=== PATIENT | male | born 1960 | race Caucasian/White ===

== ENCOUNTER 2019-07-22 10:16 | Outpatient (CLI) | payer MEDICARE, OTHER ==
--- NOTE | 2019-07-22 11:48 | RAD ---
Esophagram air contrast HISTORY: Reflux. Dysphagia. FINDINGS: Air contrast and single column barium evaluation of the esophagus shows a small sliding hia linsey hernia. Extensive reflux of contrast throughout the length of the esophagus. Mild nonpropulsive, tertiary type contractions. A 12 mm barium tablet traversed the esophagus without holdup. IMPRESSION : Small sliding hiatal hernia with large amount of gastroesophageal reflux and mild tertiary contractio ns of the esophagus. No evidence of esophageal obstruction.
== END 2019-07-22 10:17 | disposition home or self-care (01) ==
LOC: RAD 10:16
PROVIDERS: ATTEND Internal Medicine Gastroenterology
DX: K21.9 Gastro-esophageal reflux disease without esophagitis (principal); R13.19 Other dysphagia; Z11.59 Encounter for screening for other viral diseases; K44.9 Diaphragmatic hernia without obstruction or gangrene; K22.8 Other specified diseases of esophagus
CPT/HCPCS: 74220

== ENCOUNTER 2022-12-27 09:03 | Outpatient (CLI) | payer MEDICARE | END 2022-12-27 09:04 | disposition home or self-care (01) | LOC: RAD 09:03 | PROVIDERS: ATTEND Internal Medicine Critical Care Medicine | DX: R06.00 Dyspnea, unspecified (principal) | CPT/HCPCS: 71046 ==

== ENCOUNTER 2023-01-29 08:43 | Outpatient (CLI) | payer MEDICARE | END 2023-01-29 08:44 | disposition home or self-care (01) | LOC: BICCT 08:43 | PROVIDERS: ATTEND Internal Medicine Critical Care Medicine | DX: R91.8 Other nonspecific abnormal finding of lung field (principal); J98.4 Other disorders of lung; I70.0 Atherosclerosis of aorta; I25.10 Atherosclerotic heart disease of native coronary artery without angina pectoris | CPT/HCPCS: 71250 ==

== ENCOUNTER 2023-07-16 07:49 | Day surgery (SDC) | payer MEDICARE ==
[2023-07-15 15:19] VITALS: BMI 35.2
[2023-07-16] MEDS ORDERED: CEFAZOLIN 2 GM VIAL ONE (11:58)
[2023-07-16] MEDS ORDERED: Sodium Chloride 0.9% 100 ML ONE (11:58)
[2023-07-16] MEDS ORDERED: fentaNYL PF 100 MCG/2 ML SYRINGE ONE (11:59)
[2023-07-16] MEDS ORDERED: PROPOFOL 20 ML ONE (11:59)
[2023-07-16] MEDS ORDERED: Lidocaine 1% PF 5 ML VIAL ONE (12:10)
[2023-07-16] MEDS ORDERED: HYDROcodone/Acetaminophen 5/325 mg Tablet ONE (14:28)
== END 2023-07-16 14:40 | disposition home or self-care (01) ==
LOC: SDC 07:49
PROVIDERS: ATTEND Thoracic Surgery (Cardiothoracic Vascular Surgery)
PROC: 0JH63WZ Insertion of Totally Implantable Vascular Access Device into Chest Subcutaneous Tissue and Fascia, Percutaneous Approach (ICD-10-PCS; principal; 2023-07-16)
DX: C34.11 Malignant neoplasm of upper lobe, right bronchus or lung (principal); R91.1 Solitary pulmonary nodule; I25.10 Atherosclerotic heart disease of native coronary artery without angina pectoris; I10 Essential (primary) hypertension; E78.5 Hyperlipidemia, unspecified; K21.9 Gastro-esophageal reflux disease without esophagitis; E11.9 Type 2 diabetes mellitus without complications; F32.A Depression, unspecified; Z79.84 Long term (current) use of oral hypoglycemic drugs; Z96.641 Presence of right artificial hip joint; F17.210 Nicotine dependence, cigarettes, uncomplicated; Z88.5 Allergy status to narcotic agent; Z98.890 Other specified postprocedural states; Z79.899 Other long term (current) drug therapy
CPT/HCPCS: 36561; 71045; J1642; J2704; J3490; C1788

== ENCOUNTER 2023-08-01 10:18 | Outpatient (CLI) | payer MEDICARE | END 2023-08-01 10:19 | disposition home or self-care (01) | LOC: MRI 10:18 | PROVIDERS: ATTEND Internal Medicine Hematology & Oncology | DX: C34.11 Malignant neoplasm of upper lobe, right bronchus or lung (principal) | CPT/HCPCS: 70553 ==

== ENCOUNTER 2023-12-12 13:15 | Outpatient (CLI) | payer MEDICARE ==
[2023-12-12] MEDS ORDERED: Iopamidol 370 76% 100 ML VIAL ONE (13:42)
== END 2023-12-12 13:16 | disposition home or self-care (01) ==
LOC: BICCT 13:15
PROVIDERS: ATTEND Internal Medicine Hematology & Oncology
DX: C34.11 Malignant neoplasm of upper lobe, right bronchus or lung (principal); J98.4 Other disorders of lung; J90 Pleural effusion, not elsewhere classified; I25.10 Atherosclerotic heart disease of native coronary artery without angina pectoris; K31.89 Other diseases of stomach and duodenum; Z98.890 Other specified postprocedural states
CPT/HCPCS: 71260

== ENCOUNTER 2024-12-17 12:51 | Outpatient (CLI) | payer MEDICARE ==
[2024-12-17 13:24] LABS: Estimated GFR - POC 61.0
== END 2024-12-17 12:52 | disposition home or self-care (01) ==
LOC: CT 12:51
PROVIDERS: ATTEND Internal Medicine Hematology & Oncology
DX: C34.11 Malignant neoplasm of upper lobe, right bronchus or lung (principal); J98.4 Other disorders of lung; R91.1 Solitary pulmonary nodule; K31.89 Other diseases of stomach and duodenum
CPT/HCPCS: 36415; 71260; 82565